=== PATIENT | female | born 1960 | race Caucasian/White ===

== ENCOUNTER 2020-02-28 08:09 | Outpatient (REF) | payer OTHER, SELFPAY ==
--- NOTE | 2020-02-28 08:14 | MM_ITS ---
EXAMINATION: MM SCREENING DIGITAL BREAST TOMOSYNTHESIS, BILATERAL CLINICAL INFORMATION: Screening. Asymptomatic. The lifetime risk of breast cancer based on the Tyrer-Cuzick Model is 7.8%. COMPARISON: Mammography: January 28, 2019 and studies dating back to June 13, 2013 TECHNIQUE: Digital breast tomosynthesis is performed in both the craniocaudal and mediolateral oblique views along with computer-aided detection (CAD). Synthesized 2D images are generated from the tomosynthesis. FINDINGS: There are scattered areas of fibroglandular density (ACR BI-RADS breast composition Category b). There are no significant masses, abnormal calcifications, or other abnormalities. MM/MM tomosynthesis screening BI IMPRESSION: There are no significant changes from prior study. ASSESSMENT: BI-RADS 1: Negative RECOMMENDATION: Routine annual mammography screening. This patient's information was entered into a reminder system with a target due date for their next mammogram.
== END 2020-02-28 08:10 | disposition home or self-care (01) ==
LOC: HO.MAMMO 08:09
PROVIDERS: Visit Provider Pediatrics
DX: Z12.31 Encounter for screening mammogram for malignant neoplasm of breast (principal)
CPT/HCPCS: 77063; 77067

== ENCOUNTER 2022-02-21 07:12 | Day surgery (SDC) | payer OTHER, SELFPAY ==
--- NOTE | 2022-02-20 10:48 | HO.ANESPROP2 ---
Documented by User: Zahida Philip NP 02/20/22 10:48 HPI - Anesthesia Eval Consult details Narrative: 61yo F for Colonoscopy FOR[facility] Past Medical History Medical History Anxiety Depression Ganglion cyst of wrist Gestational diabetes Surgical History Surgical History H/O dilation and curettage Social History Social History Patient Tobacco Use Status: Never used Tobacco Are you DNR?: No Advance Directives: No Advance Directives Information Provided: Yes Recently lost weight without trying: No Nutrition Risks: No Nutritional Risk Meds Allergies Allergy/AdvReac Type Severity Reaction Status Date / Time No Known Allergies Allergy Verified 02/21/22 07:33 Home Medications Medication Instructions Recorded Confirmed Last Taken Type [place] 3 1 cap PO DAILY 02/20/22 02/20/22 02/13/22 History fluoxetine 10 mg tablet 1 tab PO DAILY 02/20/22 02/20/22 02/19/22 History Exam Exam Date and Time: February 20, 2022 1048 Assessment and Plan Assessment Anesthesia Assessment: Chart Reviewed Documented by User: Danie Lindsay MD 02/21/22 08:19 [facility] Past Medical History Medical History Anxiety Depression Ganglion cyst of wrist Gestational diabetes Family History Family history of problems with anesthesia: No Surgical History Surgical History H/O dilation and curettage History of Problems with Anesthesia: No Social History Social History Patient Tobacco Use Status: Never used Tobacco Are you DNR?: No Advance Directives: No Advance Directives Information Provided: Yes Recently lost weight without trying: No Nutrition Risks: No Nutritional Risk Meds Allergies Allergy/AdvReac Type Severity Reaction Status Date / Time No Known Allergies Allergy Verified 02/21/22 07:33 Home Medications Medication Instructions Recorded Confirmed Last Taken Type [place] 3 1 cap PO DAILY 02/20/22 02/20/22 02/13/22 History fluoxetine 10 mg tablet 1 tab PO DAILY 02/20/22 02/20/22 02/19/22 History Exam Airway Mallampati Class: III TM Dist: >3cm Neck ROM: Full Loose/Missing/Broken Teeth: No Heart: [id number] Lungs: cta b/l Assessment and Plan Assessment Anesthesia Assessment: Anesthesia Plan Discussed Final Anesthetic Review Family History of Problems with Anesthesia: No History of Problems with Anesthesia: No ASA Class: II Final Preanesthetic Review: No Changes in Pt Med Stat, Meds/Allgs Chart Reviewed, Consent Obtained/Reviewed and Anes Risks/Benef Reviewed Patient Risk: Intermediate Procedure Risk: Low Assessment/Block/Sedation in SS: Assess/Block/Sedation-SS Anesthetic Plan Anesthetic Plan: MAC: and Agree w/ Assess. and Plan Disposition: Standard PACU
[2022-02-21 06:52] VITALS: BMI 40.5
[2022-02-21 07:23] VITALS: BP 150/79; PULSE 69; RESP 18; TEMP 36.6; O2SAT 96
[2022-02-21] MEDS: Lactated Ringers 1,000 ML 100 ML IVCONT (07:41)
--- NOTE | 2022-02-21 08:34 | MHC.SHP ---
Pre-Procedural Eval Section A Date of Service: 02/21/22 Section B Chief Complaint: screening Details of Present Illness: see H&P no changes Relevant Family History (Specify if Yes): No Relevant Social History: None Present Medications: see Short Stay Collaborative assessment Medical History: No relevant PMH History of Previous Operations: No relevant previous surgery Allergies: Allergies Allergy/AdvReac Type Severity Reaction Status Date / Time No Known Allergies Allergy Verified 02/21/22 07:33 Review of Systems Sugical H&P ROS: Negative: Constitution, Cardiovascular, Respiratory, Neurological, Psychiatric, Hem-Onc, Allergic/Immunologic, Gastrointestinal, Genitourinary, Musculoskeletal, Integumentary, Endocrine and Eyes/Ears/Nose/Throat Exam Surgical H&P Exam: Normal: HEENT, Normal: Heart, Normal: Lungs, Normal: Extremities, Normal: Abdomen, Normal: Skin and Normal: Neurological Plan I have reviewed the history and physical and performed a pertinent physical examination on my patient. No changes have occurred unless specified.
[2022-02-21 09:06] VITALS: BP 104/62; PULSE 65; RESP 16; TEMP 36.7; O2SAT 96
--- NOTE | 2022-02-21 09:07 | PM.OP ---
Brief Operative Note Date of Service: 02/21/22 Pre-op diagnosis: screening Post-op diagnosis: same Procedure: colonoscopy Surgeon: Asif Wetzel Anesthesia: MAC Was an Voice And Data Technician used for this Procedure?: No Estimated blood loss (mL): 0 Pathology: none sent Condition: stable Disposition: PACU
[2022-02-21 09:21] VITALS: BP 116/65; PULSE 60; RESP 16; O2SAT 98
[2022-02-21 09:36] VITALS: BP 125/63; PULSE 60; RESP 16; TEMP 36.4; O2SAT 98
--- NOTE | 2022-02-22 05:13 | OP_ITS ---
SURGEON: Asif Wetzel MD INDICATIONS: Colon cancer screening. PREOPERATIVE DIAGNOSIS: POSTOPERATIVE DIAGNOSIS: PROCEDURE PERFORMED: Colonoscopy to the cecum. ESTIMATED BLOOD LOSS: COMPLICATIONS: ANESTHESIA: Monitored anesthesia care. ASSISTANTS: SPECIMENS: DESCRIPTION OF PROCEDURE: History and physical performed. The risks and benefits of the procedure were explained to the patient. Informed consent was obtained. The patient was placed in the left lateral decubitus position. A digital rectal exam was performed and was found to be normal. The Olympus pediatric video colonoscope was introduced into the rectum and advanced to the cecum without difficulty. The cecum was identified by transillumination, palpation, and identification of the ileocecal valve. Examination was performed. The scope was removed. She tolerated the procedure well and was taken to the recovery area in stable condition. The procedure was performed on 02/21/2022. FINDINGS: The terminal ileum was not examined. The visualized colonic mucosa was within normal limits without evidence of masses or ulcers. The quality of prep was good. There was moderate sigmoid diverticulosis. No polyps were identified. Retroflexed examination showed moderate internal hemorrhoids. IMPRESSION: Normal colonoscopy. RECOMMENDATION: 1. Follow up as needed. 2. Repeat colonoscopy is recommended in 10 years for average risk individuals. MD KYREE Pan/ANDRES / [id number]
== END 2022-02-21 09:51 | disposition home or self-care (01) ==
PROVIDERS: PCP Pediatrics; Visit Provider Internal Medicine Gastroenterology
PROC: 0DJD8ZZ Inspection of Lower Intestinal Tract, Via Natural or Artificial Opening Endoscopic (ICD-10-PCS; CPT 45378; principal; 2022-02-21 08:20)
DX: Z12.11 Encounter for screening for malignant neoplasm of colon (principal); K57.30 Diverticulosis of large intestine without perforation or abscess without bleeding; K64.8 Other hemorrhoids; F32.A Depression, unspecified; F41.1 Generalized anxiety disorder; Z79.899 Other long term (current) drug therapy; Z79.1 Long term (current) use of non-steroidal anti-inflammatories (NSAID)
CPT/HCPCS: 45378